=== PATIENT | female | born 1970 | race Caucasian/White ===

== ENCOUNTER 2025-02-06 20:13 | Inpatient (IN) | payer MEDICAID, SELFPAY ==
[2025-02-06 20:16] VITALS: BMI 33.0
--- NOTE | 2025-02-06 20:21 | PD.EDAMS ---
Altered Mental Status RME/HPI General Chief Complaint: Altered Mental Status Stated Complaint: ALTERED Time Seen by Provider: 02/06/25 20:21 Arrival date/time: 02/06/25 20:13 RME / HPI RME / HPI narrative: Dr. Dixon?s Main ED Evaluation: 54yo female JOHANNA from home presents to the ED for a chief complaint of altered mental status. Per EMS, patient was found laying in bed unresponsive and altered by her mom. Upon EMS arrival, patient was confused, but awake. Blood sugar en route with EMS was 96. EMS denied the patient having pinpoint pupils on scene. Patient is on Suboxone. Full ROS is unobtainable due to the patient's AMS. Related Data Home Medications ?Medication ?Instructions ?Recorded ?Confirmed omeprazole 20 mg capsule,delayed 20 mg PO QDAY 11/20/19 02/09/24 release tizanidine 4 mg tablet (Zanaflex) 4 mg PO TID 11/20/19 07/21/21 cholecalciferol (vitamin D3) 125 125 mcg PO QDAY 06/29/21 02/09/24 mcg (5,000 unit) tablet (Vitamin D3) gabapentin 300 mg capsule 300 mg PO BID 06/29/21 02/09/24 tramadol 50 mg tablet 50 mg PO QID 06/29/21 07/21/21 Previous Rx's ?Medication ?Instructions ?Recorded docusate sodium 100 mg capsule 100 mg PO BID #40 caps 06/30/21 (Colace) hydrocodone 5 mg-acetaminophen 325 1 tab PO Q6H PRN pain (scale score 06/30/21 mg tablet 7-10) #20 tabs doxycycline hyclate 100 mg tablet 100 mg PO BID #14 tabs 02/09/24 fluconazole 150 mg tablet 150 mg PO QDAY #1 tab 02/09/24 Allergies Allergy/AdvReac Type Severity Reaction Status Date / Time erythromycin base Allergy Severe THROAT Verified 02/06/25 20:14 SWELLS Sulfa (Sulfonamide Allergy Severe THROAT Verified 02/06/25 20:14 Antibiotics) SWELLS, RASH trimethoprim Allergy Severe THROAT Verified 02/06/25 20:14 SWELLS adhesive tape Allergy Blister Verified 02/06/25 20:14 Review of Systems Review of Systems ROS Unobtainable: unobtainable due to mental status Past Medical History Past Medical History NEUROLOGIC: Negative Neurological Disorders or Seizures CARDIAC: Negative Cardiac Disorders, Congestive Heart Failure, Edema, Cellulitis or Varicose Veins RESPIRATORY: Negative Chronic Obstructive Pulmonary Disease (COPD), Asthma, Tuberculosis, Pulmonary Embolism or Sleep Apnea GASTROINTESTINAL: Positive Gastrointestinal Disorders, Gall Bladder Disease, Hiatal Hernia, Gastroesophageal Reflux Disease and Obesity; Negative Hepatitis GENITOURINARY: Positive Kidney Stones; Negative Genitourinary Disorders or Renal Disease REPRODUCTIVE: Positive Previous Pregnancies MUSCULOSKELETAL: Positive Musculoskeletal Disorders, Carpal Tunnel Syndrome and Fibromyalgia ENDOCRINE: Positive Endocrine Disorders (Pt had Hypothyroidism) and Hypothyroidism; Negative Diabetes Mellitus Type 1 or Diabetes Mellitus Type 2 HEMATOLOGIC: Negative Blood Disorders or Sickle Cell Disease OTHER HISTORY: Positive Chicken Pox; Negative Hospitalization, Autoimmune Disease, Shingles, Falls, Blood Transfusions, Blood Transfusion Reaction, Anesthesia Reactions, Chemotherapy, Radiation Therapy, MRSA, Measles, Mumps or Cancer Family History FAMILY HISTORY: Positive Family Cancer and Family Surgery; Negative Family Psychiatric Problems, Family Respiratory Disorders, Family Cardiac Disorders, Family Gastrointestinal Problems or Family Anesthesia Reaction Surgical History SURGICAL: Positive Tonsillectomy (Right Tonsil Removed.), Abdominal Surgery, Gastric Bypass Surgery, Hysterectomy and Tubal Ligation; Negative Pacemaker Social History SMOKING STATUS: Unknown if ever smoked ED Exam Narrative Physical exam: Generally patient is comatose, head is normocephalic atraumatic, eyes show pupils to be equal at approximately 3 mm bilaterally and sluggish to react, heart regular rate and rhythm, lungs clear to auscultation equal bilaterally, abdomen is soft and nondistended, skin is cool pale and dry, extremities show chronic bilateral lower extremity symmetrical edema, neurologic exam patient moans to painful stimuli and localizes painful stimuli without eye-opening to painful stimuli for a GCS of 8. Course Quality Measures none Orders Category Date Time Status EKG (ED ONLY) *Do not use* NOW Care 02/06/25 20:16 Completed Hicks [Urinary Catheter] QS Care 02/06/25 20:37 Active Insert IV NOW Care 02/06/25 20:[address] head/brain wo con Stat Exams 02/06/25 20:23 Completed EKG (ED Only) Stat Exams 02/06/25 20:16 Ordered Alcohol, Blood Medical Stat Lab 02/06/25 20:28 Completed Ammonia Stat Lab 02/06/25 20:28 Completed CBC Stat Lab 02/06/25 20:28 Completed CMP [Comprehensive Metabolic Panel] Stat Lab 02/06/25 20:28 Completed Drug Screen,Urine Stat Lab 02/06/25 20:36 Completed Lactic Acid [Lactate (Lactic Acid)] Stat Lab 02/06/25 21:04 Completed TSH [Thyroid Stimulating Hormone] Stat Lab 02/06/25 20:28 Completed Troponin I Stat Lab 02/06/25 20:28 Completed UA [Urinalysis] Stat Lab 02/06/25 20:36 Completed Sodium Chloride 0.9% 1000 ml [Ns] 1,000 ml Med 02/06/25 20:59 Active IV 999 mls/hr Vital Signs Vital signs: Vital Signs Temperature 96.8 F 02/06/25 20:38 Pulse Rate 54 L 02/06/25 20:38 Respiratory Rate 14 02/06/25 20:38 Blood Pressure 125/86 H 02/06/25 20:38 Pulse Oximetry (%) 98 02/06/25 20:38 Oxygen Delivery Method Room Air 02/06/25 20:38 Altered Mental Status MDM Narrative MDM Narrative:: Scribe Attestation: 02/06/25 Parvin Soliman am scribing for and in the presence of Dr. Dixon. At the patient's home the patient was found to have multiple packages of Suboxone open which were 8 mg film. The workup is totally unremarkable including head CT which is negative. TSH was slightly low. Urinary tox screen is negative. Alcohol level has not elevated. Case was discussed with poison control who recommended observing the patient for respiratory suppression. Patient was hydrated with a liter normal saline. Patient did not hemodynamically become unstable here in the emergency room. Case was discussed with the hospitalist. Patient required mission to hospital for further treatment and evaluation for this Suboxone overdose. Patient data External records reviewed:: [facility] previous records (Per chart review, patient was admitted here on 02/08/24 for urinary retention.) and EMS form Clinical information provided by:: EMS Social determinants that could affect healthcare access:: none Patient has the following chronic illnesses:: COPD How is presenting disease/condition affected by chronic disease/condition?: uneffected by Evaluation data The following diagnostics were reviewed and interpreted by me:: lab results, radiology exam(s) and EKG tracing(s) Lab and/or radiology exams considered but not ordered:: none Interpretation Summary: [facility] Report Signed Patient: FANI HARRIS Med. Record#: [id number] Birthdate: 1970 Age/Sex: 54 / F [facility] Attending Dr: Ordering Physician: Jesus Dixon DO Date of Service: 02/06/25 Procedure(s): CT head/brain wo con Accession Number(s): [id number] cc: Kimo Pisano MD; Jesus Dixon DO~ Examination: CT brain head without contrast. 2-D sagittal coronal reconstructions Date and time of exam: February 06, 2025, 2052 hours, comparison February 08, 2024 INDICATIONS: Altered mental status today CTDI: vol (mGy): 46.8 DLP: (mGycm): 961 Technique: Multiple CT axial sections of the brain have been obtained, 5 mm slice thickness. Contrast has not been administered. 2-D sagittal, coronal reconstructions have been obtained Low dose protocols were performed. One or more of the following dose reduction techniques were used; automated exposure control, adjustment of the mA and/or KV according to patient size, use of iterative reconstruction technique. Findings: No significant ventricular enlargement. Intra-axial or extra-axial hemorrhage density is not seen. No mass effect or midline shift Basal cisterns are not remarkable. Fourth ventricle is midline. Cranial vault intact. Impression: Negative for acute hemorrhage, mass effect or midline shift Advise clinical correlation and follow-up accordingly Dictated By: Kimo Pisano MD Signed By: <Electronically signed by Kimo Pisano MD in OV> 02/06/253 Medications / Prescriptions Medications or Prescriptions considered but not ordered:: none Medication administrations:: Medication Administration History Sodium Chloride (Ns) 1,000 mls @ 999 mls/hr IV .Q1H1M ONE Stop: 02/06/25 21:59 Last Admin: 02/06/25 21:06 Dose: 999 mls/hr Documented By: SM see above Consultations Consultation(s) initiated? (list below): Yes Diagnosis Differential diagnosis altered mental status: other (See MDM) Most likely diagnosis given after review of the tests above:: see clinical impression below Admission Indicated Admission indicated?: indicated Admission Request Was there a request for admission?: Yes Admission Attestation Admission request attestation: Discussed case with [] from Hospitalist service regarding admission. Discussed patients ED course, exam findings, labs, and radiology results. The Hospitalist [agrees,declines] to accept the patient for admission. Disposition Plan Disposition Plan: Admit Critical Care Time Critical Care Time Critical Care Time: Yes Total Critical Care Time (min.): 35 Attestation: Excluding other billable procedures Discharge Plan Plan Patient Disposition: Admit Acute Care w/in Hospital Prescriptions/Referrals Prescriptions/Med Rec: No Action tizanidine [Zanaflex] 4 mg Tablet 4 mg PO TID omeprazole 20 mg Capsule,Delayed Release(Dr/Ec) 20 mg PO QDAY tramadol 50 mg tablet 50 mg PO QID Patient Comments: TAKE ONE TABLET BY MOUTH FOUR TIMES DAILY gabapentin 300 mg capsule 300 mg PO BID Patient Comments: TAKE ONE CAPSULE BY MOUTH TWICE DAILY cholecalciferol (vitamin D3) [Vitamin D3] 125 mcg (5,000 unit) Tablet 125 mcg PO QDAY hydrocodone-acetaminophen 5-325 mg tablet 1 tab PO Q6H MDD 4 PRN (Reason: pain (scale score 7-10)) Qty: 20 0RF docusate sodium [Colace] 100 mg capsule 100 mg PO BID Qty: 40 0RF fluconazole 150 mg tablet 150 mg PO QDAY Qty: 1 0RF doxycycline hyclate 100 mg tablet 100 mg PO BID Qty: 14 0RF Problem List Clinical Impression: Overdose of buprenorphine Patient/Caregiver Discharge Instructions Print Language: Turkmen Stand Alone Forms: [facility] Award Info., Patient Portal Info Letter
[2025-02-06 20:38] VITALS: BP 125/86; PULSE 54; RESP 14; TEMP 36; O2SAT 98
--- NOTE | 2025-02-06 20:39 | PC.NURSE ---
PT WAS BIBA FROM HOME FOR BEING UNRESPONSIVE. PT'S MOM FOUND PT ON BED WITH BUPRENORPHINE NEXT TO HER UNRESPONSIVE. PT'S MOM CALLED 911 AND STARTED CPR. ON EMS ARRIVAL PT WAS WAKE BUT ALTERED WITH A GCS OF 14. ON ARRIVAL TO UNIT, MD AT BEDSIDE. PT WITHDRAWS TO PAINFUL STIMULI. VITAL SIGNS CHARTED. POISON CONTROL WAS CALLED @2041. THIS RN SPOKE TO SERENA, RECOMMENDATIONS: --AGGRESSIVE FLUIDS RESUSCITATIONS (W/ RENAL FUNCTION TREND) --FOR RESPIRATORY DEPRESSION GIVE NARCAN --MONITOR PT FOR 12 TO 24HR FOR WITHDRAWS --MONITOR AIRWAY --ASSESS FOR LIFE COACH DEPRESSION (SYMPTOMATIC BRADYCARDIA GIVE ATROPINE AND HYPOTENSION GIVE FLUIDS) --SUPPLEMENTAL OXYGEN --TOX SCREEN --INTUBATION IF ADVISED FROM MD --BASIC LABS INCLUDING CK AND LACTIC
[2025-02-06 20:44] LABS: Collection Type, Urine Voided; Squamous Epithelial Cell,Urine 0 /hpf (0-5)
[2025-02-06 20:45] LABS: Basophils # (Auto) 0.0 Thou/mm3 (0.0-0.2); Basophils % (Auto) 1 % (0-2.5); Eosinophils # (Auto) 0.1 Thou/mm3 (0.0-0.5); Eosinophils % (Auto) 2 % (0-10); Hematocrit 34.1 % (36.0-46.0); Hemoglobin 10.3 g/dL (12.0-16.0); Immature Granulocytes Auto 0.02 Thou/mm3 (0.00-0.00); Lymphocytes # (Auto) 1.2 Thou/mm3 (1.0-4.8); Lymphocytes % (Auto) 22 % (10-50); Mean Corpuscular HGB Conc 30.2 g/dl (31.0-37.0); Mean Corpuscular Hemoglobin 26.0 pg (25.0-35.0); Mean Corpuscular Volume 86 fL (80-100); Monocytes # (Auto) 0.6 Thou/mm3 (0.0-0.8); Monocytes % (Auto) 11 % (0-12); Neutrophils # (Auto) 3.4 Thou/mm3 (1.8-7.7); Neutrophils % (Auto) 64 % (37-80); Nucleated Red Blood Cell # 0.00 Thou/mm3 (0.00-0.00); Nucleated Red Blood Cell % 0 /100 WBC (0); Platelet Count 291 Thou/mm3 (140-440); RDW Standard Deviation 45.5 fL (36.4-46.3); Red Blood Count 3.96 Miln/mm3 (4.00-5.20); White Blood Count 5.3 Thou/mm3 (3.6-11.0)
[2025-02-06 20:51] LABS: Bilirubin,Urine Negative (Negative); Blood,Urine Negative (Negative); Clarity,Urine Clear (Clear/Hazy); Color,Urine Yellow (Lt Yel-Yel); Glucose, Urine Negative (Negative); Hyaline Casts,Urine < 1 /hpf (0-1); Ketones,Urine Negative (Negative); Leukocyte Esterase,Urine Negative (Negative); Nitrite,Urine Negative (Negative); PH,Urine 6.0 (5.0-7.0); Protein,Urine Trace (Neg - Trace); RBC,Urine < 1 /hpf (0-3); Specific Gravity,Urine 1.032 (1.001-1.035); Urobilinogen,Urine 2.0 mg/dL (0.0-1.0); WBC,Urine 1 /hpf (0-5)
[2025-02-06 20:53] LABS: Amphetamine/Methamp Scrn,U Negative (Negative); Barbiturate Screen,Urine Negative (Negative); Benzodiazepines Screen,Urine Negative (Negative); Benzoylecgonine Screen, Ur Negative (Negative); Fentanyl Screen,Urine Negative (Negative); Opiate Screen,Urine Negative (Negative); THC Screen,Urine Negative (Negative)
[2025-02-06] MEDS: SODIUM CHLORIDE 0.9% 1000 ML 1,000 ML 999 ML IV (21:06)
[2025-02-06 21:07] LABS: Alanine Aminotransferase 106 U/L (10-49); Albumin, Serum 4.3 gm/dL (3.5-5.0); Albumin/Globulin Ratio 1.7 (1.2-2.2); Alcohol, Blood Medical < 3.0 mg/dL (0-10.0); Alkaline Phosphatase 233 U/L (46-116); Ammonia < 10 uMol/L (11-32); Anion Gap 9 (7-16); Aspartate Amino Transferase 143 U/L (0-34); BUN/Creatinine Ratio 17 Ratio (12-20); Bilirubin,Total 0.6 mg/dL (0.3-1.2); Blood Urea Nitrogen 10 mg/dL (9-23); Calcium 9.1 mg/dL (8.3-10.6); Calcium (Corrected) 9.1 mg/dL (8.5-10.1); Carbon Dioxide 30.4 mMol/L (20.0-31.0); Chloride 104 mMol/L (98-107); Creatinine (Component) 0.6 mg/dL (0.6-1.3); Estimated Creatinine Clearance 123.0 mL/min (>60); Globulin 2.5 gm/dL (2.3-3.5); Glucose 104 mg/dL (74-106); Osmolality,Calculated 283 (275-295); Potassium 3.9 mMol/L (3.4-5.1); Sodium 143 mMol/L (136-145); Thyroid Stimulating Hormone 0.34 uIU/mL (0.55-4.78); Total Protein 6.8 gm/dL (5.7-8.2); Troponin I < 0.020 ng/mL (0.0-0.045); eGFR > 60 See Note
[2025-02-06 21:14] LABS: Lactate (Lactic Acid) 0.6 mMol/L (0.4-2.0)
--- NOTE | 2025-02-06 22:25 | XR_ITS ---
EXAMINATION: AP chest single view TECHNIQUE: AP portable semiupright chest single view Date and time: February 06, 2025, 11:08 p.m. COMPARISON: July 20, 2021 INDICATIONS: Wheezing today. FINDINGS: Mild prominence left ventricle Mild vascular congestion. No lobar pneumonia or pulmonary edema Prominent osteopenia IMPRESSION: Mild vascular congestion
[2025-02-06 23:01] LABS: Acetaminophen < 2.0 mcg/mL (10.0-20.0); Salicylate < 3.0 mg/dL
[2025-02-06 23:03] VITALS: BP 168/83; PULSE 58; RESP 19; TEMP 36.6; O2SAT 98
[2025-02-06 23:44] VITALS: PULSE 59; RESP 22; RESP 98
--- NOTE | 2025-02-07 00:19 | PD.RESHP ---
Documentation for date of: 02/07/25 [facility] History of Present Illness History of present illness: Ms. Melendez is a 54 y/o female with PMH opioid use disorder, COPD, chronic pain, urinary retention who presented to the ED on 02/06 with AMS. GCS 8 after being found unresponsive at home next to an empty bottle of Suboxone. Patient was found unresponsive at home by mother, who started CPR without checking pulse, per EMS. Patient was BIBA and found to have GCS 8 on arrival, though she was protecting her airway, not developing respiratory depression and spO2 was appropriate on room air. Upon initial assessment, patient had GCS of 8, would open her eyes and say 1-2 words after sternal rub, but then she would become unresponsive again. After several attempts to interact with patient, she began opening her eyes to voice and moving all extremities spontaneously. She was unable to answer any questions meaningfully but continued to have appropriate spO2 and RR. History from chart review. Spoke with patient's mother, Anayeli Moulton, over the phone ([phone]). Patient lives with her and went to go take a nap around 1:30 pm on 02/06. Her mom went to check on her several hours after and found patient unresponsive to voice. Mother notes that she had a blue tinge around her mouth and her hands were cold and pale. After several attempts to wake patient up, the mother called 911 and was guided through counting patient's breaths and doing some chest compressions. When EMS arrived patient was able to be awoken from noxious stimuli, and she answered several questions for EMS appropriately. Mother is not aware of patient's intent behind OD, but she does not think it was a suicide attempt. Patient used to smoke and drink EtOH but has not done so in many years and has remained stable on Suboxone for several years. She follows with Dr. Valdes and was referred to a doctor of veterinary medicine in [place] but has not gone to the appointment yet. PCP: Dr. Valdes ED course: VSS, RR 14-20, spO2 98% RA. Labs significant for hgb 10.3, HCT 34.1, AST 143, ALT 106, alk phos 233. TSH 0.34. Coag, troponin, lactic acid, UA, UDS, EtOH, ammonia, CT head unremarkbale. Hicks placed. Given 1 L NS in ED. Poison control recommended admission to CTM for respiratory depression. PMHx: opioid use disorder, COPD, urinary retention s/p sling, GERD, hiatal hernia, cellulitis LLE Allergies: sulfa, erythromycin, trimethoprim, adhesive tape Home meds: pending med rec SgHx: nephrolithiasis s/p stent (removed), cholecystectomy (June 2021) SHx: Former smoker from age [age] about 2 packs per day-->56 pack years. Lives with her mother. FHx: none reported Review of Systems Review of Systems Narrative Review of Systems: Unable to assess 2/2 AMS Exam Vital Signs Temp Pulse Resp BP Pulse Ox O2 Del Method 98 F 59 L 22 H 168/83 H 98 Room Air 02/06/25 23:03 02/06/25 23:44 02/06/25 23:44 02/06/25 23:03 02/06/25 23:03 02/06/25 23:03 Narrative Exam General: Lying in bed, GCS 10 Eye: Pupils initially constricted, then reactive with anisocoria R>L HENT: Normocephalic, atraumatic Neck: Supple, non-tender Lungs: Wheezing b/l upper lung cross Heart: Normal S1 and S2, no S3 or S4 appreciated. Normal rate and regular rhythm, no murmurs, rubs gallops, or edema. 2+ b/l LE pitting edema Abdomen: Soft, nondistended, normal bowel sounds Musculoskeletal: Unable to assess active ROM 2/2 AMS Skin: Skin is warm, dry, no rashes or lesions. Neurologic: Opens eyes to voice, moves all extremities spontaneously, able to state name but not place or date, returns to closed eyes when not stimulated by voice, perseverative on stating own name when asked other questions Results: Labs 02/07/25 06:07 02/07/25 06:07 Labs: Short CBC 02/06/25 Range/Units 20:28 WBC 5.3 (3.6-11.0) Thou/mm3 Hgb 10.3 L (12.0-16.0) g/dL Hct 34.1 L (36.0-46.0) % Plt Count 291 (140-440) Thou/mm3 BMP 02/06/25 20:28 Sodium 143 Potassium 3.9 Chloride 104 Carbon Dioxide 30.4 BUN 10 Creatinine 0.6 Glucose 104 Calcium 9.1 Cardiac Enzymes 02/06/25 Range/Units 20:28 Troponin I < 0.020 (0.0-0.045) ng/mL Liver Function 02/06/25 Range/Units 20:28 Total Bilirubin 0.6 (0.3-1.2) mg/dL AST 143 H (0-34) U/L ALT 106 H (10-49) U/L Alkaline Phosphatase 233 H (46-116) U/L Albumin 4.3 (3.5-5.0) gm/dL Urine 02/06/25 Range/Units 20:36 Urine Color Yellow (Lt Yel-Yel) Urine Clarity Clear (Clear/Hazy) Urine pH 6.0 (5.0-7.0) Ur Specific [place] 1.032 (1.001-1.035) Urine Protein Trace (Neg - Trace) Urine Glucose (UA) Negative (Negative) Quality Measures Quality Measures VTE prophylaxis Medications Home Medications and Allergies Home Medications ?Medication ?Instructions ?Recorded ?Confirmed ?Type omeprazole 20 mg capsule,delayed 20 mg PO QDAY 11/20/19 02/09/24 History release tizanidine 4 mg tablet (Zanaflex) 4 mg PO TID 11/20/19 07/21/21 History cholecalciferol (vitamin D3) 125 125 mcg PO QDAY 06/29/21 02/09/24 History mcg (5,000 unit) tablet (Vitamin D3) gabapentin 300 mg capsule 300 mg PO BID 06/29/21 02/09/24 History tramadol 50 mg tablet 50 mg PO QID 06/29/21 07/21/21 History buprenorphine 8 mg-naloxone 2 mg 1 film buccal BID 02/07/25 02/07/25 History sublingual film rimegepant 75 mg disintegrating 75 mg PO 02/07/25 History tablet (Nurtec ODT) Allergies Allergy/AdvReac Type Severity Reaction Status Date / Time erythromycin base Allergy Severe THROAT Verified 02/06/25 20:14 SWELLS Sulfa (Sulfonamide Allergy Severe THROAT Verified 02/06/25 20:14 Antibiotics) SWELLS, RASH trimethoprim Allergy Severe THROAT Verified 02/06/25 20:14 SWELLS adhesive tape Allergy Blister Verified 02/06/25 20:14 Visit Medications Acetaminophen (Acetaminophen 325 Mg Tablet) 650 mg PO Q6H PRN PRN Reason: Fever >100.3 Stop: 03/08/25 22:21 Acetaminophen (Acetaminophen Supp 650 Mg Supp) 650 mg MN Q6H PRN PRN Reason: PAIN SCALE 1-3 (mild Stop: 03/08/25 22:21 Heparin Sodium (Porcine) (Heparin Sod Inj 5000 Unit/Ml Vial) 5,000 unit SC Q8HR LOREN Stop: 02/21/25 05:59 Sodium Chloride (Ns) 1,000 mls @ 75 mls/hr IV .[id number] LOREN Stop: 02/07/25 12:20 Ondansetron HCl (Ondansetron Inj 2 Mg/Ml Inj 2 Ml) 4 mg IVP Q6H PRN; Protocol PRN Reason: NAUSEA OR VOMITING Stop: 03/08/25 22:21 Discontinued Medications Sodium Chloride (Ns) 1,000 mls @ 999 mls/hr IV .Q1H1M ONE Stop: 02/06/25 21:59 Last Infusion: 02/06/25 22:10 Dose: Infused Assessment & Plan Plan Ms. Melendez is a 54 y/o female with PMH opioid use disorder, COPD, chronic pain, urinary retention who presented to the ED on 02/06 with AMS, GCS 8. Admitted for suboxone OD. # Acute encephalopathy 05/20 #Suboxone overdose Unknown time of OD, found unresponsive by mother next to bottle of empty suboxone Poison control recommend CTM at least 24 hr for respiratory depression GCS 8 --> 10. Protective airway, RR 14-20, spO2 98% RA UDS, EtOH, acetaminophen, salicylate levels negative. Troponin, lactic acid, ammonia, electrolytes, UA unremarkable CT head negative for acute hemorrhage, mass effect, midline shift Plan: - Pending EKG - CTM VS, continuous pulse ox and supplemental O2 PRN - Neuro checks q4h - Hicks in place #COPD Wheezing heard in b/l UE. spO2 98% RA CXR showed vascular congestion Plan: - CTM spO2 - Continuous pulse ox and supplemental O2 PRN to maintain spO2 88-92% - Duoneb once appropriate #Transaminitis On admit AST 143, ALT 106, alk phos 233 - increased from previous admissions Plan: - CTM with CMP daily #Normocytic anemia On admit hgb 10.3, HCT 34.1 Plan: - CTM with daily CBC - Transfuse if hgb <7 #Hypothyroidism vs subclinical hypothyroidism TSH 0.34 Plan: - Pending free T4 #R/O suicidal ideation Patient altered at this time, re-evaluate once more alert and responsive Social referral Checklist Dispo: admit to tele to monitor for respiratory depression Diet: NPO Bowel Reg: n/a VTE ppx: heparin subQ GI ppx: n/a Pain mgmt: Tylenol PRN Code status: Full. Can reassess when pt no longer altered Plan discussed with Dr. Vallejo and Dr. Eder Baugh MD PGY1 Attending Provider Attestation/Addendum After examination of the patient and review of the clinical data I feel that this patient needs admission to the hospital for further treatment/evaluation. Plan of care discussed with patient and is in agreement. I Alcira Gaines MD, attest that I was physically present for peterson portions of evaluation, and examined patient, labs and imagings and plan of care were discussed with IM residents team, and I agree with the findings and plans documented above.
[2025-02-07] MEDS: SODIUM CHLORIDE 0.9% 1000 ML 1,000 ML 75 ML IV (00:42)
--- NOTE | 2025-02-07 03:19 | PC.RT ---
environmental monitoring specialist made aware of EKG.
[2025-02-07 03:42] LABS: Creatine Kinase 89 U/L (34-171)
--- NOTE | 2025-02-07 05:00 | EKG_ITS ---
[facility] Test Date: 2025-02-07 Pat Name: FANI HARRIS Department: Room: [facility] Gender: Female Cnp: [id number] : 1970 Requested By: Alcira Downing Order Number: [id number] Reading MD: Alcira Downing Measurements Intervals Sylvester Rate: 65 P: 125 OR: 152 QRS: 203 QRSD: 104 T: 164 QT: 415 QTc: 431 Interpretive Statements SINUS RHYTHM ARM LEADS REVERSED ATYPICAL ECG Compared to ECG 02/08/2024 12:34:51 Intraventricular conduction delay no longer present /store/S0/[id number].pdf
[2025-02-07 05:20] VITALS: BMI 30.9
[2025-02-07] MEDS: HEPARIN SOD INJ 5000 UNIT/ML VIAL SC ×3 (05:27→21:41)
--- NOTE | 2025-02-07 06:16 | PC.NURSE ---
Attempted to do med rec, however, pt is unable to state home medications. I spoke to her daughter who said she would try to bring home meds today.
[2025-02-07 06:28] LABS: Basophils # (Auto) 0.0 Thou/mm3 (0.0-0.2); Basophils % (Auto) 0 % (0-2.5); Eosinophils # (Auto) 0.1 Thou/mm3 (0.0-0.5); Eosinophils % (Auto) 1 % (0-10); Hematocrit 32.4 % (36.0-46.0); Hemoglobin 9.8 g/dL (12.0-16.0); Immature Granulocytes Auto 0.02 Thou/mm3 (0.00-0.00); Lymphocytes # (Auto) 1.0 Thou/mm3 (1.0-4.8); Lymphocytes % (Auto) 15 % (10-50); Mean Corpuscular HGB Conc 30.2 g/dl (31.0-37.0); Mean Corpuscular Hemoglobin 26.1 pg (25.0-35.0); Mean Corpuscular Volume 86 fL (80-100); Monocytes # (Auto) 0.6 Thou/mm3 (0.0-0.8); Monocytes % (Auto) 10 % (0-12); Neutrophils # (Auto) 4.5 Thou/mm3 (1.8-7.7); Neutrophils % (Auto) 73 % (37-80); Nucleated Red Blood Cell # 0.00 Thou/mm3 (0.00-0.00); Nucleated Red Blood Cell % 0 /100 WBC (0); Platelet Count 256 Thou/mm3 (140-440); RDW Standard Deviation 45.9 fL (36.4-46.3); Red Blood Count 3.75 Miln/mm3 (4.00-5.20); White Blood Count 6.2 Thou/mm3 (3.6-11.0)
[2025-02-07 06:49] LABS: Alanine Aminotransferase 85 U/L (10-49); Albumin, Serum 3.7 gm/dL (3.5-5.0); Albumin/Globulin Ratio 1.9 (1.2-2.2); Alkaline Phosphatase 205 U/L (46-116); Anion Gap 11 (7-16); Aspartate Amino Transferase 90 U/L (0-34); BUN/Creatinine Ratio 20 Ratio (12-20); Bilirubin,Total 0.8 mg/dL (0.3-1.2); Blood Urea Nitrogen 8 mg/dL (9-23); Calcium 8.5 mg/dL (8.3-10.6); Calcium (Corrected) 8.7 mg/dL (8.5-10.1); Carbon Dioxide 29.4 mMol/L (20.0-31.0); Chloride 106 mMol/L (98-107); Creatinine (Component) 0.4 mg/dL (0.6-1.3); Estimated Creatinine Clearance 178.6 mL/min (>60); Free T4 (Free Thyroxine) 1.16 ng/dL (0.89-1.76); Globulin 2.0 gm/dL (2.3-3.5); Glucose 92 mg/dL (74-106); Magnesium 1.8 mg/dL (1.6-2.6); Osmolality,Calculated 288 (275-295); Phosphorous 2.8 mg/dL (2.4-5.1); Potassium 3.6 mMol/L (3.4-5.1); Sodium 146 mMol/L (136-145); Total Protein 5.7 gm/dL (5.7-8.2); eGFR > 60 See Note
[2025-02-07 08:00] VITALS: BP 106/66; PULSE 70; PULSE 75; RESP 17; TEMP 37.1; O2SAT 100
[2025-02-07] MEDS: Magnesium Sulfate 4 GM Ivpb 4 GM/50 ML BAG IV (08:12)
[2025-02-07] MEDS: POTASSIUM CHL 10 mEq IVPB 10 MEQ/100 ML BAG 100 MEQ IV ×4 (08:12→12:10)
[2025-02-07 08:21] VITALS: PULSE 72; RESP 18; O2SAT 100
[2025-02-07 09:06] LABS: Hepatitis A Antibody IgM Non Reactive (Non React); Hepatitis B Core Antibody IgM Non Reactive (Non React); Hepatitis B Surface Antigen Non Reactive (Non React); Hepatitis C Antibody Non Reactive (Non React)
--- NOTE | 2025-02-07 09:06 | ESPR_ITS ---
<Statement entered by Brianne Cyr MD - 02/08/25 16:07> Addendum on 02/08/2025: Patient has not expressed overdose desire and has denied having a plan. Patient has a possible history of depression as has been prescribed escitalopram as an outpatient, but has not expressed SI or SA before. - The patient's plan was discussed with attending Dr. Nieves Cyr MD PGY2 Internal Medicine Documentation for date of: 02/07/25 Patient is a 54-year-old female with a past medical history of COPD, chronic pain, history of urinary retention s/p urinary sling who was admitted overnight with concern for suboxone overdose with improved GCS score after admission. Per poison emergency room note, poison control was contaced and recommending respiratory drive monitoring. Patient examined at bedside. Paitent noted to have acute encephalopathy as patient is alert and orientated X 2 at best and continues to have echolalia. Concern for underlying neurological cause. Neurology consulted. Pending neuro recommendations thiamine or EEG, pending neuro recommendations. Utoxicology negative. UA negative. Normocytic anemia noted, iron panel am and ferritin. Transaminitis noted, hepatitis panel ordered, negative vs dehydration vs mediction side effect. Denied r. upper qudarant pain. Subclinical hyperthyroidism. Low TSH with normal free T4. [place]ern for SI given suboxone use, social work update and request for sitter/aperture. Senior Resident Attestation: I have discussed the case with supervising physician and internet marketing intern physician involved in the care of patient. I personally saw and examined patient and discussed the assessment and plan with the entire medical team, including attending. I agree with assessment and plan as documented below. - The patient's plan was discussed with attending Dr. Nieves Cyr MD PGY2 Internal Medicine Subjective Subjective Interval history: Patient examined bedside, labs reviewed. Patient is minimally responsive, confirms she was feeling depressed and had thoughts of self harm, and indicates this was an intentional overdose. She endorses that she has ongoing SI with plan if she were to leave the hospital today. Currently receiving comfort care and coordinating with crisis center. Exam Vital Signs Temp Pulse Resp BP Pulse Ox O2 Del Method 98.7 F 75 17 106/66 100 Room Air 02/07/25 08:00 02/07/25 08:00 02/07/25 08:00 02/07/25 08:00 02/07/25 08:00 02/07/25 08:00 Narrative Exam General: Lying in bed, GCS 15 Eye: PERRL HENT: Normocephalic, atraumatic Neck: Supple, non-tender Lungs: Wheezing b/l upper lung cross, minimal effort of inspiration and expiration Heart: Normal S1 and S2, no S3 or S4 appreciated. Normal rate and regular rhythm, no murmurs, rubs gallops, or edema. Abdomen: Soft, nondistended, normal bowel sounds Musculoskeletal: FROM Skin: Skin is warm, dry, no rashes or lesions. Neurologic: Opens eyes to voice, moves all extremities spontaneously, able to state name but not place or date, returns to closed eyes when not stimulated by voice, perseverative on stating own name when asked other questions Objective Labs 02/09/25 05:30 02/09/25 05:30 Labs: Laboratory Results - last 24 hr 02/06/25 02/06/25 02/06/25 20:28 20:36 21:04 WBC 5.3 RBC 3.96 L Hgb 10.3 L Hct 34.1 L MCV 86 MCH 26.0 MCHC 30.2 L RDW Std Deviation 45.5 Plt Count 291 Neut % (Auto) 64 Lymph % (Auto) 22 [place] % (Auto) 11 Eos % (Auto) 2 Baso % (Auto) 1 Neut # (Auto) 3.4 Lymph # (Auto) 1.2 [place] # (Auto) 0.6 Eos # (Auto) 0.1 Baso # (Auto) 0.0 Immature Gran # (Auto) 0.02 H Absolute Nucleated RBC 0.00 Immature Gran % 0 Nucleated RBC % 0 Sodium 143 Potassium 3.9 Chloride 104 Carbon Dioxide 30.4 Anion Gap 9 BUN 10 Creatinine 0.6 Estim Creat Clear Calc 123.0 eGFR > 60 BUN/Creatinine Ratio 17 Glucose 104 Calculated Osmolality 283 Lactic Acid 0.6 Calcium 9.1 Corrected Calcium 9.1 Phosphorus Magnesium Total Bilirubin 0.6 AST 143 H ALT 106 H Alkaline Phosphatase 233 H Ammonia < 10 L Total Creatine Kinase Troponin I < 0.020 Total Protein 6.8 Albumin 4.3 Globulin 2.5 Albumin/Globulin Ratio 1.7 TSH 0.34 L Free T4 Ur Collection Type Voided Urine Color Yellow Urine Clarity Clear Urine pH 6.0 Ur Specific [place] 1.032 Urine Protein Trace Urine Glucose (UA) Negative Urine Ketones Negative Urine Blood Negative Urine Nitrite Negative Urine Bilirubin Negative Urine Urobilinogen (Auto) 2.0 Ur Leukocyte Esterase Negative Urine RBC < 1 Urine WBC 1 Ur Squamous Epith Cells 0 Urine Bacteria None Hyaline Casts < 1 Salicylates Urine Opiates Screen Negative Urine Fentanyl Screen Negative Acetaminophen Ur Barbiturates Screen Negative U Amphetamin/Meth Scrn Negative U Benzodiazepines Scrn Negative U Cocaine Metab Screen Negative U Marijuana (THC) Screen Negative Ethyl Alcohol < 3.0 02/06/25 02/07/25 02/07/25 22:33 00:00 06:07 WBC 6.2 RBC 3.75 L Hgb 9.8 L Hct 32.4 L MCV 86 MCH 26.1 MCHC 30.2 L RDW Std Deviation 45.9 Plt Count 256 D Neut % (Auto) 73 Lymph % (Auto) 15 [place] % (Auto) 10 Eos % (Auto) 1 Baso % (Auto) 0 Neut # (Auto) 4.5 Lymph # (Auto) 1.0 [place] # (Auto) 0.6 Eos # (Auto) 0.1 Baso # (Auto) 0.0 Immature Gran # (Auto) 0.02 H Absolute Nucleated RBC 0.00 Immature Gran % 0 Nucleated RBC % 0 Sodium 146 H Potassium 3.6 Chloride 106 Carbon Dioxide 29.4 Anion Gap 11 BUN 8 L Creatinine 0.4 L Estim Creat Clear Calc 178.6 eGFR > 60 BUN/Creatinine Ratio 20 Glucose 92 Calculated Osmolality 288 Lactic Acid Calcium 8.5 Corrected Calcium 8.7 Phosphorus 2.8 Magnesium 1.8 Total Bilirubin 0.8 AST 90 H ALT 85 H Alkaline Phosphatase 205 H D Ammonia Total Creatine Kinase 89 Troponin I Total Protein 5.7 Albumin 3.7 D Globulin 2.0 L Albumin/Globulin Ratio 1.9 TSH Free T4 1.16 Ur Collection Type Urine Color Urine Clarity Urine pH Ur Specific [place] Urine Protein Urine Glucose (UA) Urine Ketones Urine Blood Urine Nitrite Urine Bilirubin Urine Urobilinogen (Auto) Ur Leukocyte Esterase Urine RBC Urine WBC Ur Squamous Epith Cells Urine Bacteria Hyaline Casts Salicylates < 3.0 Urine Opiates Screen Urine Fentanyl Screen Acetaminophen < 2.0 L Ur Barbiturates Screen U Amphetamin/Meth Scrn U Benzodiazepines Scrn U Cocaine Metab Screen U Marijuana (THC) Screen Ethyl Alcohol Quality Measures Quality Measures none Assessment & Plan Assessment Current Active Medications: Generic Name Dose Route Start Last Admin Trade Name Freq PRN Reason Stop Dose Admin Acetaminophen 650 mg 02/06/25 22:22 Acetaminophen 325 Mg Tablet PO 03/08/25 22:21 Q6H PRN Fever >100.3 Acetaminophen 650 mg 02/06/25 22:22 Acetaminophen Supp 650 Mg Supp [place] 03/08/25 22:21 Q6H PRN PAIN SCALE 1-3 (mild Albuterol/Ipratropium 3 ml 02/07/25 07:49 Albuterol/Ipratropium (Duoneb) Rt Maggy 3 Ml Nebu INH 03/09/25 12:59 Q6HRRT PRN wheezing Heparin Sodium (Porcine) 5,000 unit 02/07/25 06:00 02/07/25 05:27 Heparin Sod Inj 5000 Unit/Ml Vial SC 02/21/25 05:59 5,000 unit Q8HR LOREN Administration Sodium Chloride 1,000 mls @ 75 mls/hr 02/06/25 23:01 02/07/25 00:42 Ns IV 02/07/25 12:20 75 mls/hr .[id number] LOREN Administration Potassium Chloride 10 meq in 100 mls @ 100 mls/hr 02/07/25 07:48 02/07/25 08:12 Kcl Ivpb IV 02/07/25 11:47 100 mls/hr Q1H LOREN Administration Magnesium Sulfate 4 gm in 50 mls @ 12.5 mls/hr 02/07/25 07:48 02/07/25 08:12 Magnesium Sulfate Ivpb IV 02/07/25 11:47 12.5 mls/hr X1 ONE Administration Labetalol HCl 10 mg 02/07/25 07:49 Labetalol Inj 5 Mg/Ml Vial 20 Ml IVP 03/09/25 07:48 Q4HR PRN Hypertension Ondansetron HCl 4 mg 02/06/25 22:22 Ondansetron Inj 2 Mg/Ml Inj 2 Ml IVP 03/08/25 22:21 Q6H PRN NAUSEA OR VOMITING Protocol Plan Ms. Melendez is a 54 y/o female with PMH opioid use disorder, COPD, chronic pain, urinary retention who presented to the ED on 02/06 with AMS, GCS 8. Admitted for suboxone OD. #Acute encephalopathy (toxci vs metabolic) 2/2 - resolving #Suboxone overdose Unknown time of OD, found unresponsive by mother next to bottle of empty suboxone Poison control recommend CTM at least 24 hr for respiratory depression GCS 8 --> 10. Protective airway, RR 14-20, spO2 98% RA UDS, EtOH, acetaminophen, salicylate levels negative. Troponin, lactic acid, ammonia, electrolytes, UA unremarkable CT head negative for acute hemorrhage, mass effect, midline shift Plan: - unremarkable EKG - CTM VS, continuous pulse ox and supplemental O2 PRN - Neuro checks q4h - Hicks in place #History of Depression Patient has a past medical history depression who has been prescribed escitalopram in the past. Patient denied SI or SA. Plan -resume home medication as acute encephalopathy improves #COPD Wheezing heard in b/l UE. spO2 98% RA CXR showed vascular congestion Plan: - CTM spO2 - Continuous pulse ox and supplemental O2 PRN to maintain spO2 88-92% - Duoneb once appropriate #Transaminitis On admit AST 143, ALT 106, alk phos 233 - increased from previous admissions Plan: - CTM with CMP daily #Normocytic anemia On admit hgb 10.3, HCT 34.1 Plan: - CTM with daily CBC - Transfuse if hgb <7 -Iron panel -Ferritin -Peripheral blood smear #Hx of HTN Plan: -labetalol 10mg IVP Q4HR PRN Checklist Dispo: admit to tele to monitor for respiratory depression Diet: Cardiac Bowel Reg: n/a VTE ppx: heparin subQ GI ppx: n/a Pain mgmt: Tylenol PRN Code status: Full. Plan discussed with Dr. Pickett and Dr. Ger Mcintyre MD PGY1 Attending Provider Attestation/Addendum I have discussed and was present for the essential components of the history, physical examination, diagnosis, and treatment plan with the resident. I agree with the patient's care as documented by the resident and amended herein by me. Freddy Pickett DO. Although this document has been carefully reviewed, there may still be some phonetic and other typographical errors. These errors are purely grammatical due to imperfections in the software program and should not be construed in any way to compromise the substance of the patient's medical care during this visit.
--- NOTE | 2025-02-07 10:08 | PC.SS ---
Patient Bonita Melendez is a 54 Year old female admitted for Suboxone OD. SS met with patient at bedside, patient appeared to be lethargic, not answering SS questions. SS contacted patients daughter, Alisha Melendez who reports is patient's surrogate decision maker, [phone]. She reports patient lives at home with her mother, Franchesca Moulton. She reports that prior to admission she did not utilize any source of DME to assist with ambulation and was able to perform ADL's. SS inquired about OD and she reported patient has a HX of over usage of Pain medication, however reports patient did not intentionally OD. Patient receives Medical services at [facility]. Choice of pharmacy is [facility]. At time of discharge patient will return back home. Patient's daughter will provide transportation. Discharge plan: Home Next of kin: daughterAlisha.
[2025-02-07 12:00] VITALS: BP 124/73; PULSE 68; PULSE 70; RESP 14; TEMP 36.8; O2SAT 96
--- NOTE | 2025-02-07 14:43 | PD.RESCONSUL ---
HPI Data of Consult Requesting Physician: Juni Pickett DO Admitting Provider: Alcira Gaines MD Attending Provider: Juni Pickett DO Primary Care Provider: Physician No Primary/Family Consult Narrative Reason for consult: AMS History of present illness: Bonita Melendez is 54 yr female with PMH of opioid use, COPD, chronic pain, urinary retention, chronic migraine history presented to ED by ambulance due to altered mental status. GCS score of 8. Patient's mother found her to be unresponsive next to an empty bottle of Suboxone. Patient's mother attempted chest compressions while awaiting for EMS to arrive on scene. Assessment in ED showed that she was protecting airways and slowly regained responsiveness. Showed movement of extremities and response to stimuli. Patient was still confused but answering basic questions. Mother at this time did not express concern for intentional overdose for suicide. Poison control contacted as well. Agreed to admit for close monitoring. Vitals were stable in the ED. Labs significant for hgb 10.3, HCT 34.1, AST 143, ALT 106, alk phos 233. TSH 0.34. Coag, troponin, lactic acid, UA, UDS, EtOH, ammonia, CT head unremarkbale. Patient has seen Dr. Meadows in the past for management of chronic migraines. She was lost to follow-up after starting on trial agents. At bedside, patient is alert and oriented x 3, noted to have loud pressured speech, unable to recall short-term memory events. States that she started suboxone few days ago. Takes one tablet daily. Upon inquiring about the empty bottle, she stated that her medications were in a pill box on table counter. Respiratory status is stable. Endorses mild headache. Denies any blurry vision, difficulty breathing, weakness, numbness, urinary issues, diarrhea. Patient instructed to follow-up with Dr. Meadows outpatient after discharge. Will be started on prophylactic agents for migraine treatment. cc:: cc: Juni Pickett DO Review of Systems Review of Systems Systems Reviewed: All systems reviewed, normal except as documented Exam Vital Signs Temp Pulse Resp BP Pulse Ox O2 Del Method 98.2 F 70 14 124/73 96 Room Air 02/07/25 12:00 02/07/25 12:00 02/07/25 12:00 02/07/25 12:00 02/07/25 12:00 02/07/25 12:00 Narrative Exam General: Middle age female, No acute distress, cooperative, loud HEENT: NCAT, No JVD noted. Mucosa moist. Pupils are equal and reactive to light bilaterally Cardiovascular: Normal S1 and S2. Regular rate and rhythm. Respiratory: Lungs are clear to auscultation bilaterally. No wheezing or crackles heard. Abdomen: Soft, nontender, not distended, normal bowel sounds. Skin: Warm to touch, dry, no rashes noted Musculoskeletal: No gross injuries. Able to move all 4 extremities. No pitting edema Neuro: Alert, awake and oriented x3. Cranial nerves: II through XII grossly intact. Speech and language: Normal with no dysarthria or dysphasia. Loud. Motor system: Tone and bulk: Normal: Strength: 5 out of 5 in all 4 extremities; No pronator drift noted. Deep tendon reflexes: 2+ bilaterally symmetrical. Plantar reflex: Downgoing bilaterally. Sensory system: Intact to all modalities of sensation bilaterally. Coordination: Intact to [id number] and [id number] test bilaterally. No ataxia, no dysmetria, or dysdiadochokinesia noted. No intention tremors noted. Gait: Not tested. No signs of meningeal irritation noted. Psych: Normal affect and mood Results Labs 02/09/25 05:30 02/09/25 05:30 Labs: Short CBC 02/06/25 02/07/25 Range/Units 20:28 06:07 WBC 5.3 6.2 (3.6-11.0) Thou/mm3 Hgb 10.3 L 9.8 L (12.0-16.0) g/dL Hct 34.1 L 32.4 L (36.0-46.0) % Plt Count 291 256 D (140-440) Thou/mm3 BMP 02/06/25 02/07/25 20:28 06:07 Sodium 143 146 H Potassium 3.9 3.6 Chloride 104 106 Carbon Dioxide 30.4 29.4 BUN 10 8 L Creatinine 0.6 0.4 L Glucose 104 92 Calcium 9.1 8.5 Cardiac Enzymes 02/06/25 02/07/25 Range/Units 20:28 00:00 Total Creatine Kinase 89 (34-171) U/L Troponin I < 0.020 (0.0-0.045) ng/mL Liver Function 02/06/25 02/07/25 Range/Units 20:28 06:07 Total Bilirubin 0.6 0.8 (0.3-1.2) mg/dL AST 143 H 90 H (0-34) U/L ALT 106 H 85 H (10-49) U/L Alkaline Phosphatase 233 H 205 H D (46-116) U/L Albumin 4.3 3.7 D (3.5-5.0) gm/dL Urine 02/06/25 Range/Units 20:36 Urine Color Yellow (Lt Yel-Yel) Urine Clarity Clear (Clear/Hazy) Urine pH 6.0 (5.0-7.0) Ur Specific [place] 1.032 (1.001-1.035) Urine Protein Trace (Neg - Trace) Urine Glucose (UA) Negative (Negative) Quality Measures Quality Measures none Medications Home Medications and Allergies Home Medications ?Medication ?Instructions ?Recorded ?Confirmed ?Type omeprazole 20 mg capsule,delayed 20 mg PO QDAY 11/20/19 02/08/25 History release cholecalciferol (vitamin D3) 125 125 mcg PO QDAY 06/29/21 02/08/25 History mcg (5,000 unit) tablet (Vitamin D3) gabapentin 300 mg capsule 300 mg PO BID 06/29/21 02/08/25 History buprenorphine 8 mg-naloxone 2 mg 1 film buccal BID 02/07/25 02/07/25 History sublingual film rimegepant 75 mg disintegrating 75 mg PO PRN 02/07/25 02/08/25 History tablet (Nurtec ODT) Allergies Allergy/AdvReac Type Severity Reaction Status Date / Time erythromycin base Allergy Severe THROAT Verified 02/06/25 20:14 SWELLS Sulfa (Sulfonamide Allergy Severe THROAT Verified 02/06/25 20:14 Antibiotics) SWELLS, RASH trimethoprim Allergy Severe THROAT Verified 02/06/25 20:14 SWELLS adhesive tape Allergy Blister Verified 02/06/25 20:14 Visit Medications Acetaminophen (Acetaminophen 325 Mg Tablet) 650 mg PO Q6H PRN PRN Reason: Fever >100.3 Stop: 03/08/25 22:21 Acetaminophen (Acetaminophen Supp 650 Mg Supp) 650 mg OR Q6H PRN PRN Reason: PAIN SCALE 1-3 (mild Stop: 03/08/25 22:21 Albuterol/Ipratropium (Albuterol/Ipratropium (Duoneb) Rt Maggy 3 Ml Nebu) 3 ml INH Q6HRRT PRN PRN Reason: wheezing Stop: 03/09/25 12:59 Heparin Sodium (Porcine) (Heparin Sod Inj 5000 Unit/Ml Vial) 5,000 unit SC Q8HR LOREN Stop: 02/21/25 05:59 Last Admin: 02/07/25 14:11 Dose: 5,000 unit Labetalol HCl (Labetalol Inj 5 Mg/Ml Vial 20 Ml) 10 mg IVP Q4HR PRN PRN Reason: Hypertension Stop: 03/09/25 07:48 Ondansetron HCl (Ondansetron Inj 2 Mg/Ml Inj 2 Ml) 4 mg IVP Q6H PRN; Protocol PRN Reason: NAUSEA OR VOMITING Stop: 03/08/25 22:21 Discontinued Medications Sodium Chloride (Ns) 1,000 mls @ 999 mls/hr IV .Q1H1M ONE Stop: 02/06/25 21:59 Last Infusion: 02/06/25 22:10 Dose: Infused Sodium Chloride (Ns) 1,000 mls @ 75 mls/hr IV .[id number] LOREN Stop: 02/07/25 12:20 Last Admin: 02/07/25 00:42 Dose: 75 mls/hr Potassium Chloride (Kcl Ivpb) 10 meq in 100 mls @ 100 mls/hr IV Q1H LOREN Stop: 02/07/25 11:47 Last Admin: 02/07/25 12:10 Dose: 100 mls/hr Magnesium Sulfate (Magnesium Sulfate Ivpb) 4 gm in 50 mls @ 12.5 mls/hr IV X1 ONE Stop: 02/07/25 11:47 Last Admin: 02/07/25 08:12 Dose: 12.5 mls/hr Influenza Virus Vaccine Quadrival (Influenza Virus Quadrivalent 0.5 Ml Syringe) 0.5 ml IMi .ONCE ONE Stop: 02/07/25 05:40 Assessment & Plan Plan Bonita Melendez is 54 yr female with PMH of opioid use, COPD, chronic pain, urinary retention, chronic migraine history presented to ED by ambulance due to altered mental status. GCS score of 8. Patient's mother found her to be unresponsive next to an empty bottle of Suboxone. Patient admitted for toxic encephalopathy due to OD. #Toxic enephalopathy #Suboxone OD #Hx migraines Patient's mother found her to be unresponsive next to an empty bottle of Suboxone. GCS 8. Symptoms improved after arrival to ED. Patient did not have much knowledge about PCP or who started Suboxone therapy. Able to recall when treatment was started and how often she takes it. Denied any empty pill boxes at her side. - Monitor respiratory status -Cardiac monitoring -Supportive care -Avoid [facility] HE[employer]IT[employer]IAN depressants -Referral to outpatient Suboxone clinic -follow outpatient with neurology for migraine prophylactic agents #COPD #Transaminitis #Normocytic anemia #Hypothyroidism vs subclinical hypothyroidism Primary care team to manage above conditions and ongoing care needs. The patient's management plan was discussed with my attending physician Dr. Meadows. Emilee Bhardwaj, PGY-2 Attending Provider Attestation/Addendum I personally have seen and examined the patient at the bedside and I agreed with resident's findings, assessment and plan of care. Toxic encephalopathy from drug overdose Monitor respiratory and cardiac status -continue with Supportive care, Avoid [facility] HE[employer]IT[employer]IAN depressants -Referral to outpatient Suboxone clinic upon discharge -follow with neurology outpatient for migraine prophylaxis
[2025-02-07 16:00] VITALS: BP 116/72; PULSE 77; RESP 17; TEMP 36.4; O2SAT 95
[2025-02-07 19:19] VITALS: PULSE 74; RESP 18; RESP 99; O2SAT 100
[2025-02-07 20:00] VITALS: BP 126/74; PULSE 65; RESP 13; TEMP 36.7; O2SAT 98
[2025-02-07] MEDS: ACETAMINOPHEN 325 MG TABLET 650 MG PO (21:41)
[2025-02-07] MEDS: ONDANSETRON INJ 2 MG/ML INJ 2 ML 4 MG IVP (21:41)
[2025-02-08] VITALS (8 sets, daily range): BP systolic 114–137; BP diastolic 65–82; PULSE 66–90; RESP 13–99; TEMP 36.1–36.7; O2SAT 92–99
[2025-02-08] MEDS: ACETAMINOPHEN 325 MG TABLET 650 MG PO ×3 (04:15→19:37)
[2025-02-08] MEDS: HEPARIN SOD INJ 5000 UNIT/ML VIAL SC ×3 (05:17→21:24)
[2025-02-08 06:12] LABS: Basophils # (Auto) 0.0 Thou/mm3 (0.0-0.2); Basophils % (Auto) 1 % (0-2.5); Eosinophils # (Auto) 0.1 Thou/mm3 (0.0-0.5); Eosinophils % (Auto) 2 % (0-10); Hematocrit 30.6 % (36.0-46.0); Hemoglobin 9.4 g/dL (12.0-16.0); Immature Granulocytes Auto 0.01 Thou/mm3 (0.00-0.00); Lymphocytes # (Auto) 1.5 Thou/mm3 (1.0-4.8); Lymphocytes % (Auto) 39 % (10-50); Mean Corpuscular HGB Conc 30.7 g/dl (31.0-37.0); Mean Corpuscular Hemoglobin 26.4 pg (25.0-35.0); Mean Corpuscular Volume 86 fL (80-100); Monocytes # (Auto) 0.4 Thou/mm3 (0.0-0.8); Monocytes % (Auto) 11 % (0-12); Neutrophils # (Auto) 1.7 Thou/mm3 (1.8-7.7); Neutrophils % (Auto) 46 % (37-80); Nucleated Red Blood Cell # 0.00 Thou/mm3 (0.00-0.00); Nucleated Red Blood Cell % 0 /100 WBC (0); Platelet Count 254 Thou/mm3 (140-440); RDW Standard Deviation 46.5 fL (36.4-46.3); Red Blood Count 3.56 Miln/mm3 (4.00-5.20); White Blood Count 3.7 Thou/mm3 (3.6-11.0)
[2025-02-08 06:32] LABS: Alanine Aminotransferase 93 U/L (10-49); Albumin, Serum 3.7 gm/dL (3.5-5.0); Albumin/Globulin Ratio 1.9 (1.2-2.2); Alkaline Phosphatase 219 U/L (46-116); Anion Gap 10 (7-16); Aspartate Amino Transferase 139 U/L (0-34); BUN/Creatinine Ratio 13 Ratio (12-20); Bilirubin,Total 0.9 mg/dL (0.3-1.2); Blood Urea Nitrogen < 5 mg/dL (9-23); Calcium 8.7 mg/dL (8.3-10.6); Calcium (Corrected) 8.9 mg/dL (8.5-10.1); Carbon Dioxide 28.5 mMol/L (20.0-31.0); Chloride 105 mMol/L (98-107); Creatinine (Component) 0.4 mg/dL (0.6-1.3); Estimated Creatinine Clearance 182.4 mL/min (>60); Globulin 1.9 gm/dL (2.3-3.5); Glucose 100 mg/dL (74-106); Magnesium 1.9 mg/dL (1.6-2.6); Osmolality,Calculated 282 (275-295); Phosphorous 3.3 mg/dL (2.4-5.1); Potassium 3.9 mMol/L (3.4-5.1); Sodium 143 mMol/L (136-145); Total Protein 5.6 gm/dL (5.7-8.2); eGFR > 60 See Note
[2025-02-08 06:45] LABS: Ferritin 10 ng/mL (7.3-270.7); Iron 38 mcg/dL (50-170); Percent Iron Saturation 12 % (20-55); Total Iron Binding Capacity 312 mcg/dL (250-425); Unsaturated Iron Binding 274 (225-295)
--- NOTE | 2025-02-08 08:46 | XR_ITS ---
Examination: Abdomen sonogram, complete Date and time of exam: February 08, 2025, 1317 hours INDICATIONS: Elevated liver function tests on laboratory examination today. Technique: Multiple real-time grayscale transabdominal sonographic images of the abdomen have been obtained. Findings: Absent gallbladder Common bile duct 1.7 cm no stones Pancreatic head 2.2 cm Aorta 14.8 cm fatty infiltration intrahepatic biliary tract dilatation Normal hepatopetal portal venous flow Patent IVC Right kidney 11.6 cm renal cortex 1.4 cm Left kidney 12.1 cm renal cortex 2.0 cm Spleen 12.3 cm IMPRESSION: Prominent extrahepatic biliary tract dilatation, common bile duct 17 mm Recommend MRCP follow-up to exclude stricture versus stones in the common bile duct
[2025-02-08 08:54] LABS: Path Review Blood Smear Sent to Pathologist
--- NOTE | 2025-02-08 12:59 | PC.SS ---
Update: Patient is pending Neuro Rec's. Patient will discharge home when medically cleared.
--- NOTE | 2025-02-08 13:22 | PD.RESPRO ---
Documentation for date of: 02/08/25 No overnight events. Patient examined at bedside, Alert and Orientated X 3. Elma denied overdose attempt with suboxone but did state possible overdose with Nyquil that was non-intention as she was suffering for severe allergies, likely polypharmacy in the setting of Suboxone and Nyquil. Acute encephalopathy improving. Pending PT. Patient cleared and to be evaluated by crisis prevention for possible SI, low suspicion. Senior Resident Attestation: I have discussed the case with supervising physician and manager international physician involved in the care of patient. I personally saw and examined patient and discussed the assessment and plan with the entire medical team, including attending. I agree with assessment and plan as documented below. - The patient's plan was discussed with attending Dr. Nieves Cyr MD PGY2 Internal Medicine Subjective Subjective Interval history: NAEON, VSS, labs notable for Fe Panel: Fe 38, TIBC 312, Fe Saturation 12, and Ferritin 10. AST 130 up from 90, ALT 93 up from 85, and ALP 205 up from 219. Ordered US abdomen due to uptrending transaminitis. At bedside, patient was nervous about missing her appointment with Dr. Wright and paying a missed fee of $50. Spoek to daughter about calling his office to notify him about Bonita being hospitalized. Bonita states she is also known to overdose on nyquil easily, says she had 4 nyquil tab the night she came to the ED. Exam Vital Signs Temp Pulse Resp BP Pulse Ox O2 Del Method 97.0 F 80 16 126/77 98 Room Air 02/08/25 12:00 02/08/25 12:00 02/08/25 12:00 02/08/25 12:00 02/08/25 12:00 02/08/25 12:00 Narrative Exam General: Lying in bed, GCS 15 Eye: PERRL HENT: Normocephalic, atraumatic Neck: Supple, non-tender Lungs: CTAB, without wheezing, rales or rhonchi Heart: Normal S1 and S2, no S3 or S4 appreciated. Normal rate and regular rhythm, no murmurs, rubs gallops, or edema. Abdomen: Soft, nondistended, normal bowel sounds Musculoskeletal: FROM Skin: Skin is warm, dry, no rashes or lesions. Neurologic: Opens eyes to voice, moves all extremities spontaneously, AOx3 Objective Labs 02/09/25 05:30 02/09/25 05:30 Labs: Laboratory Results - last 24 hr 02/08/25 05:48 WBC 3.7 D RBC 3.56 L Hgb 9.4 L Hct 30.6 L MCV 86 MCH 26.4 MCHC 30.7 L RDW Std Deviation 46.5 H Plt Count 254 Neut % (Auto) 46 Lymph % (Auto) 39 [place] % (Auto) 11 Eos % (Auto) 2 Baso % (Auto) 1 Neut # (Auto) 1.7 L Lymph # (Auto) 1.5 [place] # (Auto) 0.4 Eos # (Auto) 0.1 Baso # (Auto) 0.0 Immature Gran # (Auto) 0.01 H Absolute Nucleated RBC 0.00 Immature Gran % 0 Nucleated RBC % 0 Smear Path Review Sent to Pathologist Sodium 143 Potassium 3.9 Chloride 105 Carbon Dioxide 28.5 Anion Gap 10 BUN < 5 L Creatinine 0.4 L Estim Creat Clear Calc 182.4 eGFR > 60 BUN/Creatinine Ratio 13 Glucose 100 Calculated Osmolality 282 Calcium 8.7 Corrected Calcium 8.9 Phosphorus 3.3 Magnesium 1.9 Iron 38 L TIBC 312 Iron Saturation 12 L Unsat Iron Binding 274 Ferritin 10 Total Bilirubin 0.9 AST 139 H ALT 93 H Alkaline Phosphatase 219 H Total Protein 5.6 L Albumin 3.7 Globulin 1.9 L Albumin/Globulin Ratio 1.9 Quality Measures Quality Measures VTE prophylaxis Assessment & Plan Assessment Current Active Medications: Generic Name Dose Route Start Last Admin Trade Name Freq PRN Reason Stop Dose Admin Acetaminophen 650 mg 02/07/25 20:17 02/08/25 04:15 Acetaminophen 325 Mg Tablet PO 03/09/25 20:16 650 mg Q6HR PRN Administration PAIN SCALE 1-3 (mild Albuterol/Ipratropium 3 ml 02/07/25 07:49 Albuterol/Ipratropium (Duoneb) Rt Maggy 3 Ml Nebu INH 03/09/25 12:59 Q6HRRT PRN wheezing Heparin Sodium (Porcine) 5,000 unit 02/07/25 06:00 02/08/25 05:17 Heparin Sod Inj 5000 Unit/Ml Vial SC 02/21/25 05:59 5,000 unit Q8HR LOREN Administration Labetalol HCl 10 mg 02/07/25 07:49 Labetalol Inj 5 Mg/Ml Vial 20 Ml IVP 03/09/25 07:48 Q4HR PRN Hypertension Ondansetron HCl 4 mg 02/06/25 22:22 02/07/25 21:41 Ondansetron Inj 2 Mg/Ml Inj 2 Ml IVP 03/08/25 22:21 4 mg Q6H PRN Administration NAUSEA OR VOMITING Protocol Polyethylene Glycol 17 gm 02/08/25 09:00 02/08/25 08:21 Polyethylene Glycol 17 Gm Packet PO 03/10/25 08:59 Not Given QDAY LOREN Sennosides 1 tab 02/08/25 09:00 02/08/25 08:21 Senna/Docusate Sod 1 Tab Tablet PO 03/10/25 08:59 Not Given QDAY LOREN Protocol Plan Ms. Melendez is a 54 y/o female with PMH opioid use disorder, COPD, chronic pain, urinary retention who presented to the ED on 02/06 with AMS, GCS 8. Admitted for suboxone OD. #Acute encephalopathy (toxic vs metabolic) 2/2 - resolving #Suboxone overdose Unknown time of OD, found unresponsive by mother next to bottle of empty suboxone Poison control recommend CTM at least 24 hr for respiratory depression GCS 8 --> 10. Protective airway, RR 14-20, spO2 98% RA UDS, EtOH, acetaminophen, salicylate levels negative. Troponin, lactic acid, ammonia, electrolytes, UA unremarkable CT head negative for acute hemorrhage, mass effect, midline shift Plan: - unremarkable EKG - CTM VS, continuous pulse ox and supplemental O2 PRN - Neuro checks q4h - Hicks in place #COPD Wheezing heard in b/l UE. spO2 98% RA CXR showed vascular congestion Plan: - CTM spO2 - Continuous pulse ox and supplemental O2 PRN to maintain spO2 88-92% - Duoneb once appropriate #Transaminitis On admit AST 143, ALT 106, alk phos 233 - increased from previous admissions Plan: - CTM with CMP daily - 02/08 uptrending transaminitis: AST 130 up from 90, ALT 93 up from 85, and ALP 205 up from 219 - ordered ABD US #Normocytic anemia On admit hgb 10.3, HCT 34.1 Plan: - CTM with daily CBC - Transfuse if hgb <7 - Fe Panel: Fe 38, TIBC 312, Fe Saturation 12, and Ferritin 10 - Peripheral blood smear pending, sent to pathology 02/08 #Hx of HTN Plan: -labetalol 10mg IVP Q4HR PRN Checklist Dispo: admit to tele to monitor for respiratory depression Diet: Cardiac Bowel Reg: n/a VTE ppx: heparin subQ GI ppx: n/a Pain mgmt: Tylenol PRN Code status: Full. Plan discussed with Dr. Pickett and Dr. Ger Hernandez DO PGY1 Attending Provider Attestation/Addendum I have discussed and was present for the essential components of the history, physical examination, diagnosis, and treatment plan with the resident. I agree with the patient's care as documented by the resident and amended herein by me. Freddy Pickett DO. Although this document has been carefully reviewed, there may still be some phonetic and other typographical errors. These errors are purely grammatical due to imperfections in the software program and should not be construed in any way to compromise the substance of the patient's medical care during this visit. Patient seen and evaluated this AM. Patient's mentation much improved today, due to the patient's transaminitis we did perform a right upper quadrant ultrasound which does show an a dilated CBD of 17 mm. Of note the patient's gallbladder is absent and she was noted to have a dilated CBD in the past, slightly worse today at 17 versus 12-13 in the past however the patient is completely asymptomatic, T. bili is normal, there is no tenderness to palpation to the patient's right upper quadrant or abdomen. As such we will continue to monitor however I do not think it needs prudent intervention at this time. Crisis eval and physical therapy pending. The patient denied any suicidal ideation to us, states it may have been from taking NyQuil in setting of Suboxone, gabapentin and Nurtec, likely just an unintentional overdose on medications. Will continue to monitor closely while she is here, likely DC tomorrow.
--- NOTE | 2025-02-08 14:09 | PC.SS ---
SS follow up note; SS follwed up with Patient's daughter, Alisha in regards to discharge plan. SS inquired about SNF. Jerson informed SS she is open to SNF, however would like PT to evaluate patient first to determine discharge plan. Patient will need a mental health evaluation when medically cleared. Aleida ANGEL.
--- NOTE | 2025-02-08 14:44 | PC.CC ---
Addendum entered by Aleida Zambrano 02/08/25 16:28: 1622-As per request from Dr. Pickett, pt was evaluated by ASW. The concern was that pt had an intentional OD with her suboxone which led her to the hospital and it was a thought that she attempted to suicide. There was an error in a resident note that indicated the pts OD was intentional and pt was suicidal with plan. However, after talking with Dr. Pickett and Dr. Cyr, that was error and Dr. Barroso will do an amendment to the note. Pt denies SI w/ plan and admits to having an opiate abuse problem. She states she lives with her mother and daughter. Pt stated she is willing to safety plan and again strongly denies SI with plan. Pt stated this is the first time she has ever OD'd and stresses it was not intentional but that she has overall body pain and took too much meds that day which ended her at [facility]. ASW staffed this case with Lizette Miranda LCSW and a safety plan was the best route for the pt. Pt and pts mother agree to the safety plan which includes the pts mother will lock all meds and she will administer the medications to the pt. Pt will be monitored by the pts mother and she will be monitored for the next 72 hours. Pt and mother agree the plan along with Dr. Cyr. Original Note: [id number]-ASW received a call from Aura Suarez stating pt is medically cleared as per Dr. Pickett. ASW contacted DR. Pickett and he stated they are waiting on a PT eval for the pt and after that, the pt will be cleared. ASW informed Dr. Pickett that underwriter solicitation director is gone for the day at 3:30pm and he stated that if PT is not done by then, the MH eval will need to wait until tomorrow. ASW will be available when pt is medically cleared until the end of shift.
--- NOTE | 2025-02-08 15:09 | PC.SS ---
BOARD HAMMER OPERATOR notified that patient has been medically cleared for mental health evaluation. BOARD HAMMER OPERATOR notified ED coordinator.
--- NOTE | 2025-02-08 15:29 | PC.SS ---
SS follow up note; SS was contacted by PT informing SS that patient needed a Rollator walker and would discharge home. SS sent DME referral through [employer]. Cammie is pending insurance authorization. SS provided patient's daughter with Cammie's contact number.
--- NOTE | 2025-02-08 16:04 | PC.PT ---
PT eval only. Patient is I with transfers and ambulation with walker.
--- NOTE | 2025-02-08 20:21 | PD.RESPRO ---
Documentation for date of: 02/08/25 Subjective Subjective Interval history: Patient examined at bedside. Vitals are stable. Labs noted for anemia with iron 38, TIBC 312, Fe Saturation 12, and Ferritin 10. LFTS uptrending. AOx3, still unable to recall any events of admission or before. Denies that she would OD. Since she has been on subxone for few months. Continue to monitor status. Patient instructed to follow-up with Dr. Meadows outpatient after discharge. Will be started on prophylactic agents for migraine treatment. Exam Vital Signs Temp Pulse Resp BP Pulse Ox O2 Del Method 98.1 F 85 18 137/82 H 92 L Room Air 02/08/25 16:00 02/08/25 16:00 02/08/25 16:00 02/08/25 16:00 02/08/25 16:00 02/08/25 16:00 Narrative Exam General: Middle age female, No acute distress, cooperative, loud HEENT: NCAT, No JVD noted. Mucosa moist. Pupils are equal and reactive to light bilaterally Cardiovascular: Normal S1 and S2. Regular rate and rhythm. Respiratory: Lungs are clear to auscultation bilaterally. No wheezing or crackles heard. Abdomen: Soft, nontender, not distended, normal bowel sounds. Skin: Warm to touch, dry, no rashes noted Musculoskeletal: No gross injuries. Able to move all 4 extremities. No pitting edema Neuro: Alert, awake and oriented x3. Cranial nerves: II through XII grossly intact. Speech and language: Normal with no dysarthria or dysphasia. Loud. Motor system: Tone and bulk: Normal: Strength: 5 out of 5 in all 4 extremities; No pronator drift noted. Deep tendon reflexes: 2+ bilaterally symmetrical. Plantar reflex: Downgoing bilaterally. Sensory system: Intact to all modalities of sensation bilaterally. Coordination: Intact to [id number] and [id number] test bilaterally. No ataxia, no dysmetria, or dysdiadochokinesia noted. No intention tremors noted. Gait: Not tested. No signs of meningeal irritation noted. Psych: Normal affect and mood Objective Labs 02/09/25 05:30 02/09/25 05:30 Labs: Laboratory Results - last 24 hr 02/08/25 05:48 WBC 3.7 D RBC 3.56 L Hgb 9.4 L Hct 30.6 L MCV 86 MCH 26.4 MCHC 30.7 L RDW Std Deviation 46.5 H Plt Count 254 Neut % (Auto) 46 Lymph % (Auto) 39 [place] % (Auto) 11 Eos % (Auto) 2 Baso % (Auto) 1 Neut # (Auto) 1.7 L Lymph # (Auto) 1.5 [place] # (Auto) 0.4 Eos # (Auto) 0.1 Baso # (Auto) 0.0 Immature Gran # (Auto) 0.01 H Absolute Nucleated RBC 0.00 Immature Gran % 0 Nucleated RBC % 0 Smear Path Review Sent to Pathologist Sodium 143 Potassium 3.9 Chloride 105 Carbon Dioxide 28.5 Anion Gap 10 BUN < 5 L Creatinine 0.4 L Estim Creat Clear Calc 182.4 eGFR > 60 BUN/Creatinine Ratio 13 Glucose 100 Calculated Osmolality 282 Calcium 8.7 Corrected Calcium 8.9 Phosphorus 3.3 Magnesium 1.9 Iron 38 L TIBC 312 Iron Saturation 12 L Unsat Iron Binding 274 Ferritin 10 Total Bilirubin 0.9 AST 139 H ALT 93 H Alkaline Phosphatase 219 H Total Protein 5.6 L Albumin 3.7 Globulin 1.9 L Albumin/Globulin Ratio 1.9 Quality Measures Quality Measures VTE prophylaxis Assessment & Plan Assessment Current Active Medications: Generic Name Dose Route Start Last Admin Trade Name Freq PRN Reason Stop Dose Admin Acetaminophen 650 mg 02/07/25 20:17 02/08/25 19:37 Acetaminophen 325 Mg Tablet PO 03/09/25 20:16 650 mg Q6HR PRN Administration PAIN SCALE 1-3 (mild Albuterol/Ipratropium 3 ml 02/07/25 07:49 Albuterol/Ipratropium (Duoneb) Rt Maggy 3 Ml Nebu INH 03/09/25 12:59 Q6HRRT PRN wheezing Ferrous Sulfate 325 mg 02/09/25 09:00 Ferrous Sulf 325 Mg Tablet PO 03/11/25 08:59 QOD LOREN Heparin Sodium (Porcine) 5,000 unit 02/07/25 06:00 02/08/25 13:34 Heparin Sod Inj 5000 Unit/Ml Vial SC 02/21/25 05:59 5,000 unit Q8HR LOREN Administration Labetalol HCl 10 mg 02/07/25 07:49 Labetalol Inj 5 Mg/Ml Vial 20 Ml IVP 03/09/25 07:48 Q4HR PRN Hypertension Ondansetron HCl 4 mg 02/06/25 22:22 02/07/25 21:41 Ondansetron Inj 2 Mg/Ml Inj 2 Ml IVP 03/08/25 22:21 4 mg Q6H PRN Administration NAUSEA OR VOMITING Protocol Polyethylene Glycol 17 gm 02/08/25 09:00 02/08/25 08:21 Polyethylene Glycol 17 Gm Packet PO 03/10/25 08:59 Not Given QDAY LOREN Sennosides 1 tab 02/08/25 09:00 02/08/25 08:21 Senna/Docusate Sod 1 Tab Tablet PO 03/10/25 08:59 Not Given QDAY LOREN Protocol Plan Bonita Melendez is 54 yr female with PMH of opioid use, COPD, chronic pain, urinary retention, chronic migraine history presented to ED by ambulance due to altered mental status. GCS score of 8. Patient's mother found her to be unresponsive next to an empty bottle of Suboxone. Patient admitted for toxic encephalopathy due to OD. #Toxic enephalopathy #Suboxone OD #Hx migraines Patient's mother found her to be unresponsive next to an empty bottle of Suboxone. GCS 8. Symptoms improved after arrival to ED. Patient did not have much knowledge about PCP or who started Suboxone therapy. Able to recall when treatment was started and how often she takes it. Denied any empty pill boxes at her side. - Monitor respiratory status -Cardiac monitoring -Supportive care -Avoid ASSISTANT PASSENGER LOCOMOTIVE ENGINEER depressants -Referral to outpatient Suboxone clinic -follow outpatient with neurology for migraine prophylactic agents #COPD #Transaminitis #Normocytic anemia #Hypothyroidism vs subclinical hypothyroidism Primary care team to manage above conditions and ongoing care needs. The patient's management plan was discussed with my attending physician Dr. Meadows. Emilee Bhardwja, PGY-2 Attending Provider Attestation/Addendum I virtually have reviewed the patient's record and I agreed with resident's findings, assessment and plan of care. Toxic encephalopathy from drug overdose Monitor respiratory and cardiac status -continue with Supportive care, Avoid ASSISTANT PASSENGER LOCOMOTIVE ENGINEER depressants -Referral to outpatient Suboxone clinic upon discharge -follow with neurology outpatient for migraine prophylaxis
[2025-02-09] VITALS: BP 145/89; PULSE 70; PULSE 74; RESP 18; TEMP 36.1; O2SAT 97
[2025-02-09 04:00] VITALS: BP 135/78; PULSE 67; PULSE 69; RESP 12; TEMP 36.1; O2SAT 96
[2025-02-09] MEDS: HEPARIN SOD INJ 5000 UNIT/ML VIAL SC (04:59)
[2025-02-09 05:57] LABS: Basophils # (Auto) 0.0 Thou/mm3 (0.0-0.2); Basophils % (Auto) 1 % (0-2.5); Eosinophils # (Auto) 0.1 Thou/mm3 (0.0-0.5); Eosinophils % (Auto) 2 % (0-10); Hematocrit 32.6 % (36.0-46.0); Hemoglobin 9.7 g/dL (12.0-16.0); Immature Granulocytes Auto 0.01 Thou/mm3 (0.00-0.00); Lymphocytes # (Auto) 1.8 Thou/mm3 (1.0-4.8); Lymphocytes % (Auto) 45 % (10-50); Mean Corpuscular HGB Conc 29.8 g/dl (31.0-37.0); Mean Corpuscular Hemoglobin 25.9 pg (25.0-35.0); Mean Corpuscular Volume 87 fL (80-100); Monocytes # (Auto) 0.5 Thou/mm3 (0.0-0.8); Monocytes % (Auto) 12 % (0-12); Neutrophils # (Auto) 1.6 Thou/mm3 (1.8-7.7); Neutrophils % (Auto) 40 % (37-80); Nucleated Red Blood Cell # 0.00 Thou/mm3 (0.00-0.00); Nucleated Red Blood Cell % 0 /100 WBC (0); Platelet Count 247 Thou/mm3 (140-440); RDW Standard Deviation 47.4 fL (36.4-46.3); Red Blood Count 3.74 Miln/mm3 (4.00-5.20); White Blood Count 4.0 Thou/mm3 (3.6-11.0)
[2025-02-09 06:18] LABS: Alanine Aminotransferase 112 U/L (10-49); Albumin, Serum 3.9 gm/dL (3.5-5.0); Albumin/Globulin Ratio 2.0 (1.2-2.2); Alkaline Phosphatase 234 U/L (46-116); Anion Gap 8 (7-16); Aspartate Amino Transferase 160 U/L (0-34); BUN/Creatinine Ratio 10 Ratio (12-20); Bilirubin,Total 1.1 mg/dL (0.3-1.2); Blood Urea Nitrogen < 5 mg/dL (9-23); Calcium 8.8 mg/dL (8.3-10.6); Calcium (Corrected) 8.9 mg/dL (8.5-10.1); Carbon Dioxide 30.2 mMol/L (20.0-31.0); Chloride 105 mMol/L (98-107); Creatinine (Component) 0.5 mg/dL (0.6-1.3); Estimated Creatinine Clearance 145.9 mL/min (>60); Globulin 2.0 gm/dL (2.3-3.5); Glucose 98 mg/dL (74-106); Magnesium 1.8 mg/dL (1.6-2.6); Osmolality,Calculated 282 (275-295); Phosphorous 4.0 mg/dL (2.4-5.1); Potassium 3.8 mMol/L (3.4-5.1); Sodium 143 mMol/L (136-145); Total Protein 5.9 gm/dL (5.7-8.2); eGFR > 60 See Note
[2025-02-09 08:00] VITALS: BP 128/85; PULSE 66; PULSE 71; RESP 18; TEMP 36.4; O2SAT 96
[2025-02-09] MEDS: Magnesium Sulfate 2 GM Ivpb 2 GM/50 ML BAG IV (08:04)
[2025-02-09] MEDS: FERROUS SULF 325 MG TABLET PO (08:04)
[2025-02-09] MEDS: POTASSIUM CHL 10 mEq IVPB 10 MEQ/100 ML BAG 100 MEQ IV (08:05)
[2025-02-09 09:22] VITALS: PULSE 69; RESP 10; RESP 98; O2SAT 98
--- NOTE | 2025-02-09 10:35 | ESDS_ITS ---
Planned Discharge Date 02/09/25 DS: Providers Provider Date of admission: 02/06/25 22:22 Primary care physician: Physician No Primary/Family Admitting Provider: Alcira Gaines MD Attending Provider on Admission: Juni Pickett DO Consults: 02/07/25 10:37 Consult to Neurology / Tele-Neurology Routine Comment: Altered/OD Consulting Provider: Teodoro Meadows 02/08/25 09:43 Referral Physical Therapy Routine Comment: Physician Instructions: Attending Provider on DC: Juni Pickett DO Discharging Provider: Juni Pickett DO DS: Diagnosis Problem List Completed Was Problem List Reviewed/Reconciled?: Yes Hospital Course Hospital Course Hospital course: Ms. Melendez is a 54 y/o female with PMH Hypertension, COPD, opioid use disorder, chronic pain, urinary retention who presented to the ED on 02/06 with AMS, GCS 8. Admitted for concern for suboxone overdose and polpypharmacy. ED Course Summary: VSS, RR 14-20, spO2 98% RA. Labs significant for hgb 10.3, HCT 34.1, AST 143, ALT 106, alk phos 233. TSH 0.34. Coag, troponin, lactic acid, UA, UDS, EtOH, ammonia, CT head unremarkbale. Hicks placed. Given 1 L NS in ED. Poison control recommended admission to [facility] for respiratory depression. GCS 8 --> 10 but still protecting airway, decision to not intubate. In the hospital her UDS was negative and labs were within normal limits other than LFTs. Her mentation improved and on the 2nd day of hospitalization was AOx4. US abd showed CBD: 17mm dilation, but she declines MRCP due to fear of MRI machines, this finding has been noted on prior scans. She explains her history of choecystectomy requiring 1 month of hospitalization, currently has no symptoms. She is encouraged to follow up outpatient. She confirms some sadness but denies ever wanting to OD, endorsing protective factors of mother and her own grandchildren. Patient states she will be more careful with suboxone and maybe consider acupuncture when her pain becomes too intolerable. She states she overdosed by accident due to pain and simultaneously increasing her Gabapentin dose. Patient is deemed safe to discharge. Discharge Instructions: -Iron tablets for anemia, take Iron tablet every other day. Stop if you develop constipation with this medication -Continue all other medication as prescribed. -Please follow up with your primary care provider within one week of discharge -If your symptoms worsen,please seek immediate medical attention and return to your nearest emergency room -If you do not have a primary care provider, you may follow up at the [facility] at [address] [place] [address] [address], [place] [address], #Acute encephalopathy, polypharmacy, resolved. #Poly-pharmacy #Suboxone overdose #COPD #Transaminitis #Normocytic anemia #Hx of HTN Patient's plan and care discussed with my attending, Dr. Pickett, and supervising resident MD Jase Romero MD Internal Medicine PGY-1 - The patient's plan was discussed with attending Dr. Nieves Cyr MD PGY2 Internal Medicine Status at Discharge Functional status at discharge: independent ambulation Overall status at discharge: patient is back to baseline Time Spent with Patient Time attestation: Total time spent providing and/or coordinating discharge services: Time spent: Greater than 30 minutes Exam Vital Signs Temp Pulse Resp BP Pulse Ox O2 Del Method 97.6 F 69 10 L 128/85 H 98 Room Air 02/09/25 08:00 02/09/25 09:22 02/09/25 09:22 02/09/25 08:00 02/09/25 09:22 02/09/25 08:00 Narrative Exam General: Lying in bed, GCS 15 Eye: PERRL HENT: Normocephalic, atraumatic Neck: Supple, non-tender Lungs: CTAB, without wheezing, rales or rhonchi Heart: Normal S1 and S2, no S3 or S4 appreciated. Normal rate and regular rhythm, no murmurs, rubs gallops, or edema. Abdomen: Soft, nondistended, normal bowel sounds Musculoskeletal: FROM Skin: Skin is warm, dry, no rashes or lesions. Neurologic: Opens eyes to voice, moves all extremities spontaneously, AOx3 Discharge Plan Plan Patient Disposition: HOME (Self Care) Patient condition on transfer: Stable Care Plan Goals: Instructions: -Iron tablets for anemia, take Iron tablet every other day. Stop if you develop constipation with this medication -Continue all other medication as prescribed. -Please follow up with your primary care provider within one week of discharge -If your symptoms worsen,please seek immediate medical attention and return to your nearest emergency room -If you do not have a primary care provider, you may follow up at the [facility] at [address] [place] [address] [address], [place] [address], Prescriptions/Referrals Prescriptions/Med Rec: New ferrous sulfate 325 mg (65 mg iron) Tablet,Delayed Release (Dr/Ec) 325 mg PO QOD 90 Days Qty: 45 0RF Continued omeprazole 20 mg Capsule,Delayed Release(Dr/Ec) 20 mg PO QDAY gabapentin 300 mg capsule 300 mg PO BID Patient Comments: TAKE ONE CAPSULE BY MOUTH TWICE DAILY cholecalciferol (vitamin D3) [Vitamin D3] 125 mcg (5,000 unit) Tablet 125 mcg PO QDAY docusate sodium [Colace] 100 mg capsule 100 mg PO BID Qty: 40 0RF buprenorphine-naloxone 8-2 mg film 1 film BUCCAL BID Patient Comments: DISSOLVE ONE film BY MOUTH TWICE DAILY without chewing OR swallowing Nurtec ODT 75 mg tablet,disintegrating 75 mg PO PRN Discontinued tizanidine [Zanaflex] 4 mg Tablet 4 mg PO TID tramadol 50 mg tablet 50 mg PO QID Patient Comments: TAKE ONE TABLET BY MOUTH FOUR TIMES DAILY hydrocodone-acetaminophen 5-325 mg tablet 1 tab PO Q6H MDD 4 PRN (Reason: pain (scale score 7-10)) Qty: 20 0RF Referrals: No Primary/Family,Physician [Primary Care Provider] Teodoro Meadows MD [Physician, Neurology] Patient/Caregiver Discharge Instructions Print Language: Turkish Stand Alone Forms: [facility] Award Info., Patient Portal Info Letter Discharge Order Discharge Orders: Discharge (Routine); Ordered 02/09/25 Ordered By: Brianne Cyr Quality Discharge Quality Measures VTE prophylaxis Attestestation MD Attestation I have discussed and was present for the essential components of the discharge history, physical examination, diagnosis, and discharge treatment plan with the resident. I agree with the patient's discharge care as documented by the resident and amended herein by me. Freddy Pickett DO. The patient understood all discharge instructions, all questions were answered satisfactorily. The patient was instructed to return to the Emergency Department is symptoms worsened or persisted. Was back to baseline at time of discharge, likely medication overdose with NyQuil, Suboxone, gabapentin and Nurtec. I believe this is unintentional, she did not endorse any SI with us once she became coherent to answer questions. She was back to her baseline today, daughter was at bedside. Commend she follow closely with her primary care physician for possible medication adjustment and closer monitoring in the future. Of note, due to transaminitis, we did order a right upper quadrant ultrasound which did demonstrate an enlarged CBD of 17 mm however no stones were seen. Patient has had cholecystectomy in the past and evidence of enlarged CBD. T. bili within normal limits, patient completely asymptomatic, no tenderness to palpation hence I do not feel a need for further workup however if the patient does develop pain, nausea or vomiting to return to the emergency department for further workup. Patient was stable, afebrile and tolerating p.o. intake at time of discharge home. Although this document has been carefully reviewed, there may still be some phonetic and other typographical errors. These errors are purely grammatical due to imperfections in the software program and should not be construed in any way to compromise the substance of the patient's medical care during this visit. Time Spent on discharge:
[2025-02-09 12:00] VITALS: BP 140/92; PULSE 76; PULSE 77; RESP 18; TEMP 36.4; O2SAT 97
--- NOTE | 2025-02-09 13:31 | PC.NURSE ---
discharge pending patient personal transportation at approximately 1400
--- NOTE | 2025-02-09 13:44 | VVPN_ITS ---
Telemedicine visit statement This visit was conducted with the use of interactive audio and video telecommunications system that permits real time communication between the patient and the provider. Patient's verbal consent for virtual visit was obtained on 02/09/25 at 1344. Documentation for date of: 02/09/25 Subjective Subjective Interval history: Patient is in telemetry. No new symptoms reported. Patient is back to baseline Virtual exam Vital Signs Temp Pulse Resp BP Pulse Ox O2 Del Method 97.5 F 77 18 140/92 H 97 Room Air 02/09/25 12:00 02/09/25 12:00 02/09/25 12:00 02/09/25 12:00 02/09/25 12:00 02/09/25 12:00 Objective Labs 02/09/25 05:30 02/09/25 05:30 Labs: Laboratory Results - last 24 hr 02/09/25 05:30 WBC 4.0 RBC 3.74 L Hgb 9.7 L Hct 32.6 L MCV 87 MCH 25.9 MCHC 29.8 L RDW Std Deviation 47.4 H Plt Count 247 Neut % (Auto) 40 Lymph % (Auto) 45 [place] % (Auto) 12 Eos % (Auto) 2 Baso % (Auto) 1 Neut # (Auto) 1.6 L Lymph # (Auto) 1.8 [place] # (Auto) 0.5 Eos # (Auto) 0.1 Baso # (Auto) 0.0 Immature Gran # (Auto) 0.01 H Absolute Nucleated RBC 0.00 Immature Gran % 0 Nucleated RBC % 0 Sodium 143 Potassium 3.8 Chloride 105 Carbon Dioxide 30.2 Anion Gap 8 BUN < 5 L Creatinine 0.5 L Estim Creat Clear Calc 145.9 eGFR > 60 BUN/Creatinine Ratio 10 L Glucose 98 Calculated Osmolality 282 Calcium 8.8 Corrected Calcium 8.9 Phosphorus 4.0 Magnesium 1.8 Total Bilirubin 1.1 AST 160 H ALT 112 H Alkaline Phosphatase 234 H Total Protein 5.9 Albumin 3.9 Globulin 2.0 L Albumin/Globulin Ratio 2.0 Assessment & Plan Problem List (1) Overdose of buprenorphine: Status: Acute Assessment and plan: Resolved, patient is back to baseline. (2) Chronic headache: Status: Chronic Assessment and plan: Patient is stable from neurology standpoint for discharge. Reassurance given to the patient regarding the negative workup. Advised to cut down on frequency of NSAIDs. Will try gabapentin for prevention and Nurtec as needed for abortive therapy
== END 2025-02-09 14:26 | disposition home or self-care (01) | DRG 812 ==
LOC: SERX 21:48 → SERHOLD 22:43 → S2NX 02-07 04:12
PROVIDERS: Admitting Provider Student in an Organized Health Care Education/Training Program; Emergency Provider Emergency Medicine; Visit Provider Student in an Organized Health Care Education/Training Program
DX: T40.491A Poisoning by other synthetic narcotics, accidental (unintentional), initial encounter (principal); R41.82 Altered mental status, unspecified; J44.9 Chronic obstructive pulmonary disease, unspecified; G89.29 Other chronic pain; F11.10 Opioid abuse, uncomplicated; R74.01 Elevation of levels of liver transaminase levels; D64.9 Anemia, unspecified; E03.9 Hypothyroidism, unspecified; I10 Essential (primary) hypertension; Z51.5 Encounter for palliative care; G43.909 Migraine, unspecified, not intractable, without status migrainosus; E05.90 Thyrotoxicosis, unspecified without thyrotoxic crisis or storm; G92.8 Other toxic encephalopathy; Z87.891 Personal history of nicotine dependence; Z88.2 Allergy status to sulfonamides; Z88.8 Allergy status to other drugs, medicaments and biological substances
CPT/HCPCS: 36415; 70450; 71045; 76700; 80053; 80074; 80307; 80320; 80329; 81001; 82140; 82550; 82728; 83540; 83550; 83605; 83735; 84100; 84439; 84443; 84484; 85025; 93005; 94664; 94762; 96361; 96372; 96374; 97162; 99284; A4314; J1644; J2405; J3475; J3480; J7030; A9270; G0480